=== PATIENT | female | born 1990 | race African-American/Black ===

== ENCOUNTER 2016-03-19 08:17 | Emergency (ER) | payer OTHER ==
[~2016-03-19] VITALS: Ht 172.7 cm; Wt 95.3 kg
[2016-03-19 08:41] VITALS: BP 108/64
== END 2016-03-19 09:23 | disposition home or self-care (01) ==
LOC: ER 08:19
DX: N39.0 Urinary tract infection, site not specified (principal)

== ENCOUNTER 2016-06-14 09:21 | Emergency (ER) | payer OTHER ==
[~2016-06-14] VITALS: Ht 172.7 cm; Wt 100.7 kg
[2016-06-14 11:45] VITALS: BP 113/72
[2016-06-14] MEDS ORDERED: cefTRIAXone SOD 1,000 MG VL IM ONE (11:45)
== END 2016-06-14 12:05 | disposition home or self-care (01) ==
LOC: ER 09:27
DX: J03.90 Acute tonsillitis, unspecified (principal); Z88.8 Allergy status to other drugs, medicaments and biological substances
CPT/HCPCS: 96372; 99283; J0696

== ENCOUNTER → 2016-10-23 | Emergency (ER) | payer OTHER | END | disposition left against medical advice (07) | LOC: ER 08:51 | DX: R10.9 Unspecified abdominal pain (principal); Z53.21 Procedure and treatment not carried out due to patient leaving prior to being seen by health care provider ==

== ENCOUNTER 2018-04-17 07:29 | Emergency (ER) | payer OTHER ==
[~2018-04-17] VITALS: Ht 172.7 cm; Wt 104.3 kg
[2018-04-17 08:03] VITALS: BP 126/80
[2018-04-17 08:20] LABS: Urine Bacteria FEW /hpf (None Seen); Urine Blood Negative /uL (Negative); Urine Specific Gravity 1.013 (1.001-1.035); Urine WBC 1 /hpf (0 - 5)
[2018-04-17] MEDS ORDERED: DICYCLOMINE HCL 10 MG CAP PO ONE (08:45)
== END 2018-04-17 10:21 | disposition home or self-care (01) ==
LOC: ER 07:29
DX: K52.9 Noninfective gastroenteritis and colitis, unspecified (principal); Z88.2 Allergy status to sulfonamides
CPT/HCPCS: 81001; 81025

== ENCOUNTER 2019-12-15 11:15 | Emergency (ER) | payer OTHER ==
[~2019-12-15] VITALS: Ht 172.7 cm; Wt 63.5 kg
[2019-12-15 14:02] LABS: Urine Bacteria NONE SEEN /hpf (None Seen); Urine Blood 2+ /uL (Negative); Urine Hyaline Cast FEW /lpf (0 - 2); Urine Mucus FEW (None Seen); Urine Specific Gravity 1.029 (1.001-1.035); Urine WBC 6 /hpf (0 - 5)
[2019-12-15 14:29] VITALS: BP 129/79
== END 2019-12-15 14:48 | disposition home or self-care (01) ==
LOC: ER 11:15
DX: N92.1 Excessive and frequent menstruation with irregular cycle (principal); F12.10 Cannabis abuse, uncomplicated; N83.209 Unspecified ovarian cyst, unspecified side; Z88.2 Allergy status to sulfonamides; Z32.02 Encounter for pregnancy test, result negative
CPT/HCPCS: 36415; 81001; 81025; 84702

== ENCOUNTER 2022-01-14 22:33 | Emergency (ER) | payer OTHER ==
[~2022-01-14] VITALS: Ht 172.7 cm; Wt 101.5 kg
[2022-01-14 23:34] VITALS: BP 110/68
== END 2022-01-15 01:07 | disposition home or self-care (01) ==
LOC: ER 22:33
DX: S83.92XA Sprain of unspecified site of left knee, initial encounter (principal); F12.10 Cannabis abuse, uncomplicated; Z88.2 Allergy status to sulfonamides; X50.1XXA Overexertion from prolonged static or awkward postures, initial encounter; Y93.89 Activity, other specified; Y92.89 Other specified places as the place of occurrence of the external cause; Y99.8 Other external cause status
CPT/HCPCS: 73562